=== PATIENT | male | born 1990 | race African-American/Black ===

== ENCOUNTER 2017-03-05 01:30 | Emergency (ER) | payer SELFPAY ==
[~2017-03-05] VITALS: Ht 175.3 cm; Wt 90.8 kg
[2017-03-05 01:35] VITALS: BP 136/82; PULSE 71; RESP 16; TEMP 97.8; O2SAT 100
[2017-03-05 01:59] VITALS: BP 136/82; PULSE 71; RESP 16; TEMP 97.8; O2SAT 100
[2017-03-05] MEDS ORDERED: LIDOCAINE HCL 1% 50 ML VIAL XX ONE (02:30)
[2017-03-05] MEDS ORDERED: cefTRIAXone 250 MG VIAL IM ONE (02:30)
[2017-03-05] MEDS ORDERED: SODIUM CHLORIDE 0.9% FLUSH 10 ML FLUSH IVF PRN (02:30)
[2017-03-05] MEDS ORDERED: AZITHROMYCIN 250 MG TAB PO ONE (02:30)
--- NOTE | 2017-03-05 02:33 | PD ---
HPI Chief Complaint: Complaint Time Seen by Provider: 02:30 Travel History International Travel<30 days: No Contact w/Intl Traveler<30days: No Traveled to known affect area: No History of Present Illness HPI 26 year-old male presents to the emergency department for complaint of one day of penile discharge. Patient has been sexually active without condom use. Patient denies prior history of STD/STI. No dysuria frequency urgency suprapubic pressure pain abdominal pain flank pain fever or chills. There were symptoms have been 3/10 in intensity presently 0/10 in intensity. Patient has been taking no medications. Patient has no chronic medical conditions. No previous surgeries. No trauma. PFSH Past Medical History Narrative Medical Asthma; no surgery; no tobacco use; nursing notes reviewed Asthma: Yes Cardiovascular Problems: No Cerebrovascular Accident: No Coronary Artery Disease: No Diabetes: No Diminished Hearing: No Tetanus Vaccination: < 5 Years Influenza Vaccination: No Past Surgical History Other Surgery: No Social History Alcohol Use: No Tobacco Use: No Substance Use: No Allergies-Medications (Allergen,Severity, Reaction): Coded Allergies: No Known Allergies (Unverified , 03/05/17) Reported Meds & Prescriptions Reported Meds & Active Scripts Active Doxycycline Hyclate 100 Mg Cap 100 Mg PO BID Review of Systems Except as stated in HPI: all other systems reviewed are Neg General / Constitutional: No: Fever, Chills HENT: No: Congestion Cardiovascular: No: Chest Pain or Discomfort Respiratory: No: Shortness of Breath Gastrointestinal: No: Abdominal Pain Genitourinary: Positive: Discharge, No: Flank Pain Musculoskeletal: No: Myalgias, Arthralgias Skin: No Rash, No Lumps Neurologic: No: Weakness Psychiatric: No: Anxiety Endocrine: No: Polyuria Hematologic/Lymphatic: No: Lymph Node Enlargement Physical Exam Narrative GENERAL: Well-developed well-nourished male in no acute distress no respiratory distress SKIN: Warm and dry. HEAD: Normocephalic. EYES: No scleral icterus. No injection or drainage. NECK: Supple, trachea midline. No JVD or lymphadenopathy. CARDIOVASCULAR: Regular rate and rhythm without murmurs, gallops, or rubs. RESPIRATORY: Breath sounds equal bilaterally. No accessory muscle use. GASTROINTESTINAL: Abdomen soft, non-tender, nondistended. Data Data Last Documented VS Vital Signs Date Time Temp Pulse Resp B/P Pulse Ox O2 Delivery O2 Flow Rate FiO2 03/05/17 03:11 98.0 78 16 130/80 99 Orders Gc And Chlamydia Pcr (03/05/17 02:18) Urinalysis - C+S If Indicated (03/05/17 02:30) Azithromycin (Zithromax) (03/05/17 02:30) Ceftriaxone Inj (Rocephin Inj) (03/05/17 02:30) Sodium Chloride 0.9% Flush (Ns Flush) (03/05/17 02:30) Lidocaine 1% Inj (50 Ml) (Xylocaine 1% I (03/05/17 02:30) Urine Culture (03/05/17 02:26) Labs Laboratory Tests Test 03/05/17 02:26 Urine Color YELLOW Urine Turbidity CLEAR Urine pH 6.0 Urine Specific [place] 1.025 Urine Protein NEG mg/dL Urine Glucose (UA) NEG mg/dL Urine Ketones NEG mg/dL Urine Occult Blood NEG Urine Nitrite NEG Urine Bilirubin NEG Urine Leukocyte Esterase SMALL Urine RBC 0-3 /hpf Urine WBC 50-99 /hpf Urine Squamous Epithelial 0-5 /hpf Cells Urine Bacteria NONE /hpf Microscopic Urinalysis Comment CULTURE INDICATED MDM Medical Decision Making Medical Screen Exam Complete: Yes Emergency Medical Condition: Yes Medical Record Reviewed: Yes Interpretation(s) Urinalysis: Positive leukocytes Estrace positive WBCs Differential Diagnosis Urethritis, epididymitis, STI/STD, UTI Narrative Course Specimens collected for PCR chlamydia and GC; urinalysis positive for WBCs Patient treated presumptively with Rocephin and azithromycin Patient stable for outpatient management encouraged to be sexually abstinent until all labs resulted and to use condom for barrier contraception and protection. Diagnosis Primary Impression: Urethritis Referrals: Primary Care Physician call for appointment Patient Instructions: General Instructions Additional Instructions: Remains sexual abstinent 7 days; then use condoms for barrier contraception Return to the emergency department for any concerns or change in condition Follow-up with primary care provider Med/Other Pt SpecificInfo: Prescription(s) given Scripts Doxycycline Hyclate 100 Mg [id number] Mg PO BID #14 CAP Ref 0 Prov:Petrona Bates MD 03/05/17 Disposition: 01 DISCHARGE HOME Condition: Stable Petrona Bates MD March 05, 2017 02:33
[2017-03-05 02:38] LABS: BLOOD, URINE NEG (NEG); GLUCOSE,URINE NEG (NEG); KETONE, URINE NEG (NEG); NITRITE,URINE NEG (NEG)
[2017-03-05 02:42] LABS: URINE COLOR YELLOW (YELLW/STRAW)
[2017-03-05 02:44] LABS: COMMENT (UR) CULTURE INDICATED; CULTURE IF INDICATED CULTURE INDICATED; RBC, URINE 0-3 /hpf (0-3); SQUAMOUS EPITHELIAL CELL URINE 0-5 /hpf (0-5)
[2017-03-05] MEDS ORDERED: DOXY100C PO (03:10)
[2017-03-05 03:11] VITALS: BP 130/80; TEMP 98
[2017-03-05 12:55] LABS: CHLAMYDIA PCR NOT DETECTED (NOT DETECT); NEISSERIA PCR NOT DETECTED (NOT DETECT)
== END 2017-03-05 03:16 | disposition home or self-care (01) ==
LOC: PHEFT 01:30
DX: N34.2 Other urethritis (principal); J45.909 Unspecified asthma, uncomplicated; Z79.899 Other long term (current) drug therapy
CPT/HCPCS: 81001; 87086; 87491; 87591; 96372; 99284; J0696

== ENCOUNTER 2017-05-12 04:02 | Emergency (ER) | payer SELFPAY ==
[~2017-05-12] VITALS: Ht 167.6 cm; Wt 93.2 kg
[~2017-05-12 04:02] MED LIST: DOXY100C PO
[2017-05-12 04:06] VITALS: BP 117/56; PULSE 76; RESP 18; TEMP 98.3; O2SAT 99
--- NOTE | 2017-05-12 04:29 | PD ---
HPI Chief Complaint: Alcohol/Drug Intoxication Time Seen by Provider: 04:22 Travel History International Travel<30 days: No Contact w/Intl Traveler<30days: No Traveled to known affect area: No History of Present Illness HPI 26-year-old male was brought in by EMS after patient was found intoxicated with unsteady gait. Patient denies any headache. Patient denies any chest pain or shortness of breath. Patient denies abdominal pain. Patient states that he has urethral discharge recently. Patient denies any fever chills. PFSH Past Medical History Asthma: Yes Cardiovascular Problems: No Cerebrovascular Accident: No Coronary Artery Disease: No Diabetes: No Diminished Hearing: No Tetanus Vaccination: < 5 Years Influenza Vaccination: No Past Surgical History Other Surgery: No Social History Alcohol Use: Yes Tobacco Use: No Substance Use: No Allergies-Medications (Allergen,Severity, Reaction): Coded Allergies: No Known Allergies (Unverified , 03/05/17) Reported Meds & Prescriptions Reported Meds & Active Scripts Active Doxycycline Hyclate 100 Mg Cap 100 Mg PO BID Review of Systems General / Constitutional: No: Fever Eyes: No: Visual changes HENT: No: Headaches Cardiovascular: No: Chest Pain or Discomfort Respiratory: No: Shortness of Breath Gastrointestinal: No: Abdominal Pain Genitourinary: Positive: Discharge, No: Dysuria Musculoskeletal: No: Pain Skin: No Rash Neurologic: No: Weakness Psychiatric: No: Depression Endocrine: No: Polydipsia Hematologic/Lymphatic: No: Easy Bruising Physical Exam Narrative GENERAL: Well-nourished, well-developed patient. SKIN: Focused skin assessment warm/dry. HEAD: Normocephalic. EYES: No scleral icterus. No injection or drainage. NECK: Supple, trachea midline. No JVD or lymphadenopathy. CARDIOVASCULAR: Regular rate and rhythm without murmurs, gallops, or rubs. RESPIRATORY: Breath sounds equal bilaterally. No accessory muscle use. GASTROINTESTINAL: Abdomen soft, non-tender, nondistended. MUSCULOSKELETAL: No cyanosis, or edema. BACK: Nontender without obvious deformity. No CVA tenderness. exam: Patient has small amounts of whitish discharge from the penis. No penile lesions noted. No inguinal lymphadenopathy. Data Data Last Documented VS Vital Signs Date Time Temp Pulse Resp B/P Pulse Ox O2 Delivery O2 Flow Rate FiO2 05/12/17 04:57 93 Room Air 05/12/17 04:06 98.3 76 18 117/56 Orders Complete Blood Count With Diff (05/12/17 04:22) Basic Metabolic Panel (Bmp) (05/12/17 04:22) Iv Access Insert/Monitor (05/12/17 04:22) Ecg Monitoring (05/12/17 04:22) Oximetry (05/12/17 04:22) Alcohol (Ethanol) (05/12/17 04:22) Azithromycin Powd Pack (Zithromax Powd P (05/12/17 04:30) Ceftriaxone Inj (Rocephin Inj) (05/12/17 04:30) Sodium Chloride 0.9% Flush (Ns Flush) (05/12/17 04:30) Lidocaine 1% Inj (Xylocaine 1% Inj) (05/12/17 05:00) Labs Laboratory Tests Test 05/12/17 04:23 White Blood Count 5.4 TH/MM3 Red Blood Count 5.22 MIL/MM3 Hemoglobin 14.0 GM/DL Hematocrit 41.5 % Mean Corpuscular Volume 79.6 FL Mean Corpuscular Hemoglobin 26.7 PG Mean Corpuscular Hemoglobin 33.6 % Concent Red Cell Distribution Width 14.3 % Platelet Count 195 TH/MM3 Mean Platelet Volume 8.6 FL Neutrophils (%) (Auto) 40.8 % Lymphocytes (%) (Auto) 46.1 % Monocytes (%) (Auto) 11.2 % Eosinophils (%) (Auto) 1.0 % Basophils (%) (Auto) 0.9 % Neutrophils # (Auto) 2.2 TH/MM3 Lymphocytes # (Auto) 2.5 TH/MM3 Monocytes # (Auto) 0.6 TH/MM3 Eosinophils # (Auto) 0.1 TH/MM3 Basophils # (Auto) 0.0 TH/MM3 CBC Comment DIFF FINAL Differential Comment Sodium Level 140 MEQ/L Potassium Level 3.5 MEQ/L Chloride Level 105 MEQ/L Carbon Dioxide Level 25.5 MEQ/L Anion Gap 10 MEQ/L Blood Urea Nitrogen 8 MG/DL Creatinine 1.13 MG/DL Estimat Glomerular Filtration 96 ML/MIN Rate Random Glucose 84 MG/DL Calcium Level 8.9 MG/DL Ethyl Alcohol Level 115 MG/DL MDM Medical Decision Making Medical Screen Exam Complete: Yes Emergency Medical Condition: Yes Interpretation(s) 5:44 AM. CBC within normal limit. BMP within normal limit. Alcohol 115. Differential Diagnosis Differential diagnosis including intoxication, electrolyte imbalance, gonorrhea and chlamydia infection. Narrative Course 26-year-old male was brought in for intoxication. Patient also complains of penile discharge. Rocephin 250 mg IM. Zithromax 1 g by mouth. Patient will be observed in ED until awake alert oriented 3 and steady on his feet and safely to be discharged. Diagnosis Primary Impression: Urethritis Additional Impression: Alcohol intoxication Qualified Code: F10.920 - Alcohol intoxication, uncomplicated Patient Instructions: General Instructions Additional Instructions: Advised [facility]. Follow-up with personal physician health Department. Med/Other Pt SpecificInfo: No Meds Exist/No RX given Disposition: DISCHARGE HOME Condition: Stable Dario Morse MD May 12, 2017 04:29
[2017-05-12] MEDS ORDERED: AZITHROMYCIN PWD FOR SUSP 1 GM PACKET PO ONE (04:30)
[2017-05-12] MEDS ORDERED: SODIUM CHLORIDE 0.9% FLUSH 10 ML FLUSH IVF PRN (04:30)
[2017-05-12] MEDS ORDERED: LIDOCAINE HCL 1% 50 ML VIAL XX ONE (04:30)
[2017-05-12] MEDS ORDERED: cefTRIAXone 250 MG VIAL IM ONE (04:30)
[2017-05-12 04:48] LABS: AUTOMATED NEUTROPHIL # 2.2 TH/MM3 (1.8-7.7); BASOPHIL % 0.9 % (0.0-2.0); EOSINOPHIL # 0.1 TH/MM3 (0-0.4); HEMATOCRIT 41.5 % (39.0-51.0); HEMO FLAGS DIFF FINAL; LYMPH % 46.1 % (9.0-44.0); LYMPHOCYTE # 2.5 TH/MM3 (1.0-4.8); MEAN CELL VOLUME 79.6 FL (80.0-100.0); MEAN CORPUSCULAR HEMOGLOBIN 26.7 PG (27.0-34.0); MEAN CORPUSCULAR HGB CONC 33.6 % (32.0-36.0); MONO % 11.2 % (0.0-8.0); NEUT % 40.8 % (16.0-70.0); PLATELET COUNT 195 TH/MM3 (150-450); RED BLOOD COUNT 5.22 MIL/MM3 (4.50-5.90); RED CELL DISTRIBUTION WIDTH 14.3 % (11.6-17.2); WHITE BLOOD COUNT 5.4 TH/MM3 (4.0-11.0)
[2017-05-12 04:54] VITALS: O2SAT 95
[2017-05-12] MEDS ORDERED: LIDOCAINE HCL 1% 20 ML VIAL INFIL ONE (05:00)
[2017-05-12 05:15] LABS: BICARBONATE 25.5 MEQ/L (21.0-32.0); POTASSIUM 3.5 MEQ/L (3.5-5.1)
[2017-05-12 07:00] VITALS: BP 122/64; PULSE 72; RESP 16; TEMP 98.2; O2SAT 99
== END 2017-05-12 12:59 | disposition home or self-care (01) ==
LOC: NEPC 04:02 → NEDAMB 12:59
DX: N34.2 Other urethritis (principal); F10.120 Alcohol abuse with intoxication, uncomplicated
CPT/HCPCS: 80048; 80307; 85025; 96372; 99284; J0696

== ENCOUNTER 2017-05-31 14:12 | Emergency (ER) | payer SELFPAY ==
[~2017-05-31] VITALS: Ht 177.8 cm; Wt 84.0 kg
[2017-05-31 14:18] VITALS: BP 136/63; PULSE 88; RESP 16; TEMP 98.3; O2SAT 98
--- NOTE | 2017-05-31 15:24 | PD ---
HPI Chief Complaint: GI Complaint Time Seen by Provider: 15:14 Travel History International Travel<30 days: No Contact w/Intl Traveler<30days: No Traveled to known affect area: No History of Present Illness HPI This patient has had 2 days of nausea and vomiting and diarrhea. However he's had steady improvement and is getting close to normal. 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 Symptoms severity is mild. No alleviating factors. He is not having abdominal pain or fever. PFSH Past Medical History Asthma: Yes Cardiovascular Problems: No Cerebrovascular Accident: No Coronary Artery Disease: No Diabetes: No Diminished Hearing: No Past Surgical History Other Surgery: No Social History Alcohol Use: Yes Tobacco Use: No Substance Use: No Allergies-Medications (Allergen,Severity, Reaction): Coded Allergies: No Known Allergies (Unverified , 05/31/17) Reported Meds & Prescriptions Reported Meds & Active Scripts Active No Active Prescriptions or Reported Medications Review of Systems General / Constitutional: No: Fever HENT: No: Headaches Cardiovascular: No: Chest Pain or Discomfort Physical Exam Narrative GASTROINTESTINAL: Abdomen soft, non-tender, nondistended. Positive bowel sounds. No hepato-splenomegaly, or palpable masses. No guarding. SKIN: Focused skin assessment reveals no rash or ulcers. Skin is warm and dry. Palpation shows no induration or nodules. NECK: Symmetrical appearance, midline trachea. No mass or crepitus. Thyroid without enlargement, tenderness, or mass. Data Data Last Documented VS Vital Signs Date Time Temp Pulse Resp B/P (MAP) Pulse Ox O2 Delivery O2 Flow Rate FiO2 05/31/17 14:18 98.3 88 16 136/63 (87) 98 MDM Medical Decision Making Medical Screen Exam Complete: Yes Emergency Medical Condition: Yes Medical Record Reviewed: Yes Differential Diagnosis Gastritis, colitis, food poisoning Narrative Course I have reviewed the patient's electronic medical record. Patient's exam and vital signs are normal. He is euvolemic. He wants a note worded so he can return to work on Wednesday we will provide Diagnosis Primary Impression: Nausea vomiting and diarrhea Additional Instructions: The patient was advised to follow up with their physician and return if they worsen. Med/Other Pt SpecificInfo: Other Scripts No Active Prescriptions or Reported Meds Disposition: DISCHARGE HOME Condition: Stable Cas Zarate. MD May 31, 2017 15:23
== END 2017-05-31 15:34 | disposition home or self-care (01) ==
LOC: PHED 14:12 → PHEFT 15:34
DX: R11.2 Nausea with vomiting, unspecified (principal); R19.7 Diarrhea, unspecified
CPT/HCPCS: 99281

== ENCOUNTER 2017-06-18 01:04 | Emergency (ER) | payer SELFPAY ==
[~2017-06-18] VITALS: Ht 177.8 cm; Wt 87.0 kg
[2017-06-18 01:14] VITALS: BP 132/71; PULSE 73; RESP 14; TEMP 98.5; O2SAT 100
[2017-06-18 01:18] VITALS: BP 132/71; PULSE 73; RESP 14; TEMP 98.5; O2SAT 100
[2017-06-18] MEDS ORDERED: LIDOCAINE HCL 1% 50 ML VIAL XX ONE (02:00)
[2017-06-18] MEDS ORDERED: SODIUM CHLORIDE 0.9% FLUSH 10 ML FLUSH IVF PRN (02:00)
[2017-06-18] MEDS ORDERED: AZITHROMYCIN PWD FOR SUSP 1 GM PACKET PO ONE (02:00)
[2017-06-18] MEDS ORDERED: cefTRIAXone 250 MG VIAL IM ONE (02:00)
[2017-06-18] MEDS ORDERED: DOXY100C PO (02:03)
--- NOTE | 2017-06-18 02:03 | PD ---
HPI Chief Complaint: Complaint Time Seen by Provider: 01:57 Travel History International Travel<30 days: No Contact w/Intl Traveler<30days: No Traveled to known affect area: No History of Present Illness HPI 26-year-old male presents to the emergency department for complaint of several days of penile discharge. Patient notes dysuria. Patient rates pain 5/10 intensity. Patient is sexually active without condoms. Patient has been treated in the past for STD. [facility] Past Medical History Narrative Medical Asthma hypertension STD alcohol use nursing notes reviewed; Asthma: Yes Cardiovascular Problems: Yes (HTN) Cerebrovascular Accident: No Coronary Artery Disease: No Diabetes: No Diminished Hearing: No Hypertension: Yes Influenza Vaccination: No Past Surgical History Other Surgery: No Social History Alcohol Use: Yes (Socially) Tobacco Use: No Substance Use: No Allergies-Medications (Allergen,Severity, Reaction): Coded Allergies: No Known Allergies (Unverified , 06/18/17) Reported Meds & Prescriptions Reported Meds & Active Scripts Active Doxycycline Hyclate 100 Mg Cap 100 Mg PO BID 7 Days Review of Systems Except as stated in HPI: all other systems reviewed are Neg Physical Exam Narrative GENERAL: Well-developed well-nourished male in acute distress no respiratory distress SKIN: Warm and dry. : Circumcised male with cloudy clear penile discharge no ulcerations no lesions bilaterally descended testicles no scrotal edema Data Data Last Documented VS Vital Signs Date Time Temp Pulse Resp B/P (MAP) Pulse Ox O2 Delivery O2 Flow Rate FiO2 06/18/17 01:25 16 06/18/17 01:18 98.5 73 132/71 (91) 100 Orders Orders Urinalysis - C+S If Indicated (06/18/17 01:57) Gc And Chlamydia Pcr (06/18/17 01:57) Azithromycin Powd Pack (Zithromax Powd P (06/18/17 02:00) Ceftriaxone Inj (Rocephin Inj) (06/18/17 02:00) Sodium Chloride 0.9% Flush (Ns Flush) (06/18/17 02:00) Lidocaine 1% Inj (50 Ml) (Xylocaine 1% I (06/18/17 02:00) Urine Culture (06/18/17 02:03) Labs Laboratory Tests Test 06/18/17 02:03 Urine Color YELLOW Urine Turbidity SLIGHT Urine pH 6.0 Urine Specific [place] 1.033 Urine Protein NEG mg/dL Urine Glucose (UA) NEG mg/dL Urine Ketones NEG mg/dL Urine Occult Blood NEG Urine Nitrite NEG Urine Bilirubin NEG Urine Leukocyte Esterase TRACE Urine RBC 0-2 /hpf Urine WBC 50-99 /hpf Urine Squamous Epithelial Cells 0-5 /hpf Urine Calcium Oxalate Crystals MOD /hpf Urine Bacteria NONE /hpf Microscopic Urinalysis Comment CULTURE INDICATED MDM Medical Decision Making Medical Screen Exam Complete: Yes Emergency Medical Condition: Yes Medical Record Reviewed: Yes Interpretation(s) UA: Leukocyte Estrace white blood cells calcium also crystals; culture indicated Differential Diagnosis Urethritis, UTI, STD, epididymoorchitis Narrative Course Patient treated presumptively with Rocephin and azithromycin for STI related urethritis Diagnosis Primary Impression: Urethritis Referrals: [facility] Dept. Patient Instructions: General Instructions Additional Instructions: Complete course of antibiotic as prescribed Follow-up with primary care provider and [facility] Department Remain sexually abstinent with no sexual activity or intercourse times one week Return to the emergency department for any concerns Scripts Doxycycline Hyclate (Doxycycline Hyclate) 100 Mg Cap 100 MG PO BID for Infection for 7 Days, CAP 0 Refills Prov: Petrona Bates MD 06/18/17 Disposition: 01 DISCHARGE HOME Condition: Stable Petrona Bates MD Jun 18, 2017 02:03
[2017-06-18 02:11] LABS: BLOOD, URINE NEG (NEG); GLUCOSE,URINE NEG (NEG); KETONE, URINE NEG (NEG); NITRITE,URINE NEG (NEG)
[2017-06-18 02:20] LABS: URINE COLOR YELLOW (YELLW/STRAW)
[2017-06-18 02:21] LABS: RBC, URINE 0-2 /hpf (0-3)
[2017-06-18 02:22] LABS: CALCIUM OXALATE CRYSTALS,URINE MOD /hpf; COMMENT (UR) CULTURE INDICATED; CULTURE IF INDICATED CULTURE INDICATED; SQUAMOUS EPITHELIAL CELL URINE 0-5 /hpf (0-5)
[2017-06-18 02:25] VITALS: BP 127/81
[2017-06-18 12:45] LABS: CHLAMYDIA PCR DETECTED (NOT DETECT); NEISSERIA PCR NOT DETECTED (NOT DETECT)
== END 2017-06-18 02:51 | disposition home or self-care (01) ==
LOC: PHED 01:04
DX: N34.2 Other urethritis (principal)
CPT/HCPCS: 81001; 87086; 87491; 87591; 96372; 99284; J0696

== ENCOUNTER 2017-07-11 20:18 | Emergency (ER) | payer SELFPAY ==
[~2017-07-11] VITALS: Ht 177.8 cm; Wt 86.0 kg
[2017-07-11 20:33] VITALS: BP 149/80; PULSE 79; RESP 18; TEMP 98.3
--- NOTE | 2017-07-11 20:58 | PD ---
HPI Chief Complaint: Medical Clearance Time Seen by Provider: 20:41 Travel History International Travel<30 days: No Contact w/Intl Traveler<30days: No Traveled to known affect area: No History of Present Illness HPI 26-year-old male presents emergency department requesting a return to work note. Patient reports he was out of work for several days due to a stomach virus. He is reporting that he has no symptoms currently and he would like to return to work. [facility] Past Medical History Medical History: Denies Significant Hx Asthma: Yes Cardiovascular Problems: Yes (HTN) Cerebrovascular Accident: No Coronary Artery Disease: No Diabetes: No Diminished Hearing: No Hypertension: Yes Tetanus Vaccination: < 5 Years Influenza Vaccination: No Past Surgical History Surgical History: No Previous Surgery Other Surgery: No Social History Alcohol Use: Yes (Socially) Tobacco Use: No Substance Use: No Allergies-Medications (Allergen,Severity, Reaction): Coded Allergies: No Known Allergies (Unverified , 07/11/17) Reported Meds & Prescriptions Reported Meds & Active Scripts Active No Active Prescriptions or Reported Medications Review of Systems Except as stated in HPI: all other systems reviewed are Neg Physical Exam Narrative GENERAL: Alert, well-appearing male in no acute distress SKIN: Focused skin assessment warm/dry. CARDIOVASCULAR: Regular rate and rhythm. No murmur appreciated. RESPIRATORY: No accessory muscle use. Clear to auscultation. Breath sounds equal bilaterally. GASTROINTESTINAL: Abdomen soft, non-tender, nondistended. Hepatic and splenic margins not palpable. Data Data Last Documented VS Vital Signs Date Time Temp Pulse Resp B/P (MAP) Pulse Ox O2 Delivery O2 Flow Rate FiO2 07/11/17 20:33 98.3 79 18 149/80 (103) MDM Medical Decision Making Medical Screen Exam Complete: Yes Emergency Medical Condition: Yes Differential Diagnosis Medical screening exam Narrative Course 26-year-old male requesting a return to work note. Patient reports he was sent home from work several days ago for a gastrointestinal illness. He denies any symptoms currently. He denies fever, chills, abdominal pain, nausea, vomiting, diarrhea. Patient will be given a return to work note. Diagnosis Primary Impression: Encounter for medical screening examination Referrals: Primary Care Physician Departure Forms: Tests/Procedures, Work Release Enter return to work date: Jul 13, 2017 Scripts No Active Prescriptions or Reported Meds Disposition: DISCHARGE HOME Condition: Stable Karon Serrano Jul 11, 2017 20:57
== END 2017-07-11 21:06 | disposition home or self-care (01) ==
LOC: PHEFT 20:18
DX: Z02.79 Encounter for issue of other medical certificate (principal); I10 Essential (primary) hypertension; J45.909 Unspecified asthma, uncomplicated
CPT/HCPCS: 99281